=== PATIENT | female | born 1930 | race Caucasian/White ===

== ENCOUNTER 2018-07-26 21:10 | Emergency (ER) | payer MEDICARE, BC ==
[2018-07-26 21:22] VITALS: RESP 16; TEMP 96.9
[2018-07-26 22:36] VITALS: BP 181/77; PULSE 83; O2SAT 98
== END 2018-07-26 22:58 | disposition short-term general hospital (02) | DRG 536 ==
LOC: ED 21:10
DX: S72.001A Fracture of unspecified part of neck of right femur, initial encounter for closed fracture (principal); W19.XXXA Unspecified fall, initial encounter; E11.9 Type 2 diabetes mellitus without complications; E78.5 Hyperlipidemia, unspecified; I10 Essential (primary) hypertension
CPT/HCPCS: 73502; 99283